=== PATIENT | female | born 2005 | race Caucasian/White ===

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

== ENCOUNTER 2023-03-10 04:29 | Outpatient (CLI) | payer MEDICAID, SELFPAY ==
[2023-03-10 07:25] LABS: Abs Immature Grans 0.02 10^3/uL (0.0-0.06); Absolute Basophil Count 0.03 10^3/uL (0.0-0.2); Absolute Lymphocyte Count 2.44 10^3/uL (1.2-3.4); Absolute Monocyte Count 0.69 10^3/uL (0.1-0.8); Absolute Neutrophil Count 3.85 10^3/uL (1.2-6.7); Basophils % 0.4; Eosinophils % 4.1; HCT 40.1 % (36.0-46.0); Immature Grans % 0.3; Lymphocytes % 33.3; MCH 25.2 pg (27.0-33.0); MCHC 32.4 % (32.0-36.0); MCV 78 fL (80-95); MPV 8.9 fL (8.0-11.0); Monocytes % 9.4; Neutrophils % 52.5; Platelet Count 329 10^3/uL (130-400); RBC 5.16 10^6/uL (3.93-5.22); RDW 15.2 % (11.7-14.6); RDW-SD 42.1 fL; WBC 7.33 10^3/uL (4.4-10.8)
[2023-03-10 07:56] LABS: ALT 25 U/L (14-59); AST 16 U/L (15-37); Albumin 3.4 g/dL (3.4-5.0); Alkaline Phosphatase 140 U/L (46-116); Anion Gap 10.4 mmol/L (3-11); BUN 9 mg/dL (7-18); Bilirubin, Total 0.4 mg/dL (0.2-1.0); CO2 24.6 mmol/L (21.0-32.0); CREATININE 0.8 mg/dL (0.55-1.02); Calcium 8.8 mg/dL (8.5-10.1); Calculated LDL 80 mg/dL (<100); Chloride 106 mmol/L (98-107); Cholesterol 148 mg/dL (<200); Estimated GFR 108.78 (mL/min/1.73m2); Glucose 102 mg/dL (74-106); HDL Cholesterol 57 mg/dL (40-60); Sodium 141 mmol/L (136-145); Total Protein 7.4 g/dL (6.4-8.2); Triglyceride 58 mg/dL (<150)
[2023-03-10 08:15] LABS: Hemoglobin A1C 5.7 % (<5.7)
== END 2023-03-10 04:30 | disposition home or self-care (01) ==
LOC: LBO 04:30
PROVIDERS: PCP Nurse Practitioner Pediatrics; Visit Provider Nurse Practitioner Pediatrics
DX: F41.8 Other specified anxiety disorders (principal); K21.9 Gastro-esophageal reflux disease without esophagitis; E66.8 Other obesity; Z79.899 Other long term (current) drug therapy; F32.4 Major depressive disorder, single episode, in partial remission
CPT/HCPCS: 36415; 80053; 80061; 83036; 85025

== ENCOUNTER → 2023-09-25 00:21 | Outpatient (CLI) | payer MEDICAID, SELFPAY ==
--- NOTE | 2023-09-25 08:45 | DI.RAD_ITS ---
Exam(s) XR HIP LT COMPLETE AP PELVIS EXAM: XR HIP LT COMPLETE AP PELVIS CLINICAL HISTORY: chronic left hip pain,[id number]. TECHNIQUE: 2D digital imaging was performed. Three views. COMPARISON: No exams were available for comparison FINDINGS: BONES: No acute fracture is present. No bony destructive lesion is seen. JOINTS: No dislocation present. Joint spaces are maintained. SI joints and pubic symphysis are unr emarkable SOFT TISSUE: Normal. IMPRESSION: Unremarkable radiographs of the left hip. Unremarkable radiographs of the pelvis DATA REPOSITORY: RADIATION DOSE DELIVERED:
== END ==
PROVIDERS: PCP Nurse Practitioner Pediatrics; Visit Provider Nurse Practitioner Pediatrics
DX: M25.552 Pain in left hip (principal)
CPT/HCPCS: 73502

== ENCOUNTER 2023-09-25 00:59 | Outpatient (CLI) | payer MEDICAID, SELFPAY ==
[2023-09-25 15:01] LABS: ESR 9 mm/hr (0-20)
[2023-09-25 16:08] LABS: ALT 103 U/L (14-59); AST 42 U/L (15-37); Albumin 3.5 g/dL (3.4-5.0); Alkaline Phosphatase 116 U/L (46-116); Anion Gap 9.6 mmol/L (3-11); BUN 13 mg/dL (7-18); Bilirubin, Total 0.2 mg/dL (0.2-1.0); C-Reactive Protein 0.14 mg/dL (0.0-0.3); CO2 25.4 mmol/L (21.0-32.0); CREATININE 0.8 mg/dL (0.55-1.02); Calcium 9.1 mg/dL (8.5-10.1); Chloride 106 mmol/L (98-107); Estimated GFR 108.11 (mL/min/1.73m2); Glucose 105 mg/dL (74-106); Potassium 3.9 mmol/L (3.5-5.1); Sodium 141 mmol/L (136-145); Total Protein 7.3 g/dL (6.4-8.2)
[2023-09-25 21:45] LABS: Rheumatoid Factor <8.6 IU/mL (<12.0)
[2023-09-26 09:57] LABS: Lyme Ab w Rflx to Lyme Confirm Negative (Negative)
[2023-09-27 15:53] LABS: Anaplasma phagocytophilum Negative (Negative); B. miyamotoi PCR Negative (Negative); Babesia divergens/MO-1 Negative (Negative); Babesia duncani Negative (Negative); Babesia microti Negative (Negative); Ehrlichia chaffeensis Negative (Negative); Ehrlichia ewingii/canis Negative (Negative); Ehrlichia muris eauclairensis Negative (Negative)
== END 2023-09-25 01:00 | disposition home or self-care (01) ==
LOC: LBO 01:00
PROVIDERS: PCP Nurse Practitioner Pediatrics; Visit Provider Nurse Practitioner Pediatrics
DX: M25.552 Pain in left hip (principal)
CPT/HCPCS: 36415; 80053; 85652; 87798; 86140; 86431; 86618

== ENCOUNTER → 2023-10-30 03:09 | Outpatient (CLI) | payer MEDICAID, SELFPAY ==
--- NOTE | 2023-10-30 09:15 | DI.MRI_ITS ---
Exam(s) MR LOWER JOINT LT WO EXAM: MR LOWER JOINT LT WO CLINICAL HISTORY: L HIP PAIN,LABRAL TEAR LT HIP JOINT,S73.192A TECHNIQUE: Multiplanar multisequence MRI of the hip was performed. COMPARISON: CR XR HIP LT COMPLETE AP PELVIS from 09/25/2023 FINDINGS: MARROW:There is no evidence of fracture, bone contusion, nor avascular necrosis. There are no signif icant osseous lesions.There is no significant osseous excrescence at the femoral head-neck junction t o suggest the presence of cam-type KEDAR. EFFUSION: There is no evidence of asymmetric joint effusion.There are no loose intra-articular bodies . BURSAE: There is no evidence of trochanteric bursitis. There is no evidence of iliopsoas bursitis. HIP JOINT SPACE: No obvious chondral defects.There is no hypertrophy of the ligamentum teres nor sign al abnormality at the fovea centralis.There are no degenerative subarticular cysts. LABRUM: There is no evidence of obvious labral tear nor evidence of paralabral cyst. TENDONS: No evidence of tendinitis nor tendon tears. ISCHIAL TUBEROSITY/HAMSTRING: There is no abnormal intraosseous signal in the ipsilateral ischial tub erosity nor tear of the common hamstrings tendon attachment site at this level. OTHER: There is no abnormal intramuscular signal within the quadratus femoris to suggest the presence of impingement syndrome at this level. Small amount of fluid noted in the lower right adnexa which is probably female physiologic. IMPRESSION: 1. No evidence of obvious labral tear on this non arthrogram hip MRI study. Also no evidence of para labral cyst. 2. No evidence of stress fracture, avascular necrosis, nor evidence of hip dysplasia 3. No evidence of cam-type KEDAR nor degenerative osteoarthritic changes in the hip. DATA REPOSITORY:
== END ==
PROVIDERS: PCP Nurse Practitioner Pediatrics; Visit Provider Student in an Organized Health Care Education/Training Program
DX: S73.192A Other sprain of left hip, initial encounter (principal); X58.XXXA Exposure to other specified factors, initial encounter
CPT/HCPCS: 73721

== ENCOUNTER 2023-11-17 23:46 | Emergency (ER) | payer MEDICAID, SELFPAY ==
[2023-11-17 23:50] VITALS: BP 147/92; PULSE 121; RESP 18; TEMP 35.9; O2SAT 99
--- NOTE | 2023-11-18 00:05 | W.ED.GENAD ---
HPI General Date/Time Provider Initiated Documentation: 11/17/23 23:55. Limitations to Documentation: no limitations. Information obtained by: patient. History of Present Illness 18 year old F presents to the emergency department with the chief complaint of Nausea vomiting, described as moderate, Patient started experiencing this hour(s) (4) and it has been intermittent. No relieving factors improve symptom(s), No exacerbating factors reported . Patient notes other (Headache, abdominal cramping); denies chest pain, fever/chills and shortness of breath. Patient did receive the following treatments prior to arrival, NSAID Related Data Home Medications Medication Instructions Recorded Confirmed melatonin 3 mg tablet 3 mg PO DAILY #60 tabs 02/27/23 11/05/23 sertraline 100 mg tablet 200 mg (2 x 100 mg) PO DAILY #120 02/27/23 11/05/23 tabs aripiprazole 5 mg tablet (Abilify) 5 mg PO BID #60 tabs 07/31/23 11/05/23 hydroxyzine HCl 50 mg tablet 50 mg PO BID #60 tabs 08/04/23 11/05/23 norgestimate 0.25 mg-ethinyl 1 tab PO DAILY #84 tabs 09/17/23 11/05/23 estradiol 35 mcg tablet (Sprintec (28)) ondansetron 8 mg disintegrating 8 mg PO Q12H PRN nausea and 09/17/23 11/05/23 tablet vomiting #14 tabs magnesium gluconate 27.5 mg 27.5 mg PO BID #60 tabs 09/18/23 11/05/23 magnesium (500 mg) tablet pantoprazole 40 mg tablet,delayed 40 mg PO BID #60 tabs 09/24/23 11/05/23 release (Protonix) coenzyme Q10 10 mg capsule (Co 10 mg PO DAILY 11/05/23 11/05/23 Q-10) Previous Rx's Medication Instructions Recorded melatonin 3 mg tablet 3 mg PO DAILY #60 tabs 02/27/23 sertraline 100 mg tablet 200 mg (2 x 100 mg) PO DAILY #120 02/27/23 tabs aripiprazole 5 mg tablet (Abilify) 5 mg PO BID #60 tabs 07/31/23 hydroxyzine HCl 50 mg tablet 50 mg PO BID #60 tabs 08/04/23 norgestimate 0.25 mg-ethinyl 1 tab PO DAILY #84 tabs 09/17/23 estradiol 35 mcg tablet (Sprintec (28)) ondansetron 8 mg disintegrating 8 mg PO Q12H PRN nausea and 09/17/23 tablet vomiting #14 tabs magnesium gluconate 27.5 mg 27.5 mg PO BID #60 tabs 09/18/23 magnesium (500 mg) tablet pantoprazole 40 mg tablet,delayed 40 mg PO BID #60 tabs 09/24/23 release (Protonix) Allergies Allergy/AdvReac Type Severity Reaction Status Date / Time spearmint Allergy Severe Other (See Verified 11/05/23 10:06 Comment) animal dander Allergy Skin Rash Verified 11/05/23 10:06 oranges Allergy Uncoded 11/05/23 10:06 General Stated Complaint: Abd Prob HEMAL: 3 Review of Systems All systems reviewed & are unremarkable except as noted in HPI and below Constitutional Constitutional: Denies chills, Denies fever(s) and Denies weakness Cardiovascular Cardiovascular: Denies chest pain and Denies dyspnea Respiratory Respiratory: Denies cough and Denies dyspnea Gastrointestinal Gastrointestinal: Reports abdominal pain, Reports nausea and Reports vomiting Genitourinary Genitourinary: Denies dysuria Musculoskeletal Musculoskeletal: Denies joint swelling Integumentary/Breasts Skin/Breast: Denies rash Neurologic Neurologic: Denies weakness Exam Const General: no acute distress Orientation: alert [facility] Head: normal to inspection Ears: external ears normal General nose exam: external nose normal Mouth: moist mucous membranes Eyes General: appearance normal, both eyes and all related structures Neck Neck: normal visual inspection Resp Effort & Inspection: normal respiratory effort and able to speak in complete sentences Cardio Rate: regular rate GI Palpation: soft and nontender Skin General skin exam: no rashes or lesions noted Neuro General: patient alert and patient oriented x3 Extrem General: normal to inspection Psych Mental Status: mental status grossly normal Course Vital Signs Vital signs: Vital Signs Temperature 35.9 C L 11/17/23 23:50 Pulse 121 H 11/17/23 23:50 Respiratory Rate 18 11/17/23 23:50 Blood Pressure 147/92 H 11/17/23 23:50 Pulse Oximetry 99 11/17/23 23:50 Temperature 35.9 C L 11/17/23 23:50 Pulse 121 H 11/17/23 23:50 Respiratory Rate 18 11/17/23 23:50 Blood Pressure 147/92 H 11/17/23 23:50 Pulse Oximetry 99 11/17/23 23:50 Oxygen Delivery Method Room Air 11/17/23 23:50 Oxygen Flow Rate 0 11/17/23 23:50 Pain Level 7 11/17/23 23:50 Medical Decision Making 18-year-old female with a history of multiple psychiatric issues, who comes in with 4 hours of intermittent nausea vomiting and abdominal cramping along with a mild frontal headache. Denies any chest pain, difficulty breathing, fevers, neck stiffness, vaginal bleeding or discharge, no urinary symptoms. She is alert and oriented x 4 on arrival holding an emesis bag, not actively vomiting. She has a soft nontender abdomen on exam. Given her symptoms suspect some food illness or gastroenteritis. Given lack of abdominal tenderness doubt surgical pathology such as appendicitis, cholecystitis, we will proceed with CBC, CMP, lipase and treat her symptoms with IV fluids and droperidol and reassess Patient feels much better requesting discharge, labs show mild leukocytosis which she has frequently on prior labs, still has no abdominal tenderness on exam so do not feel any imaging indicated. Advised to follow-up with her primary care provider, return precautions given Differential Diagnosis Differential Diagnosis: Gastroenteritis, food illness, electrolyte abnormality Medical Records Medical records reviewed: Yes I reviewed the patient's medical records. Lab Data Lab results reviewed: Yes I reviewed the patient's lab results. Quality:SDOH Health Related Social Needs: No Data to Display PFSH All Active Problems (Updated 11/18/23 @ 01:41 by Berny Beckwith MD) Nausea & vomiting (Acute) Trochanteric bursitis, left hip (Acute) Femoroacetabular impingement of left hip (Acute) Mood disorder (Acute) Labral tear of left hip joint (Acute) Joint pain (Acute) Migraine headache (Chronic) GERD (gastroesophageal reflux disease) (Chronic) seen by [facility], recommended staying on Protonix 40mg and plan for EGD Anxiety (Chronic) Borderline personality disorder (Acute) Insomnia (Acute) Hbrudn-[id number] transgender person (Acute 02/17/17) Myopia (Chronic 07/28/14) Medical History Failed hearing screening Pain in both lower extremities ADHD, predominantly inattentive type [place] does not feel this was a true diagnosis, had adverse reaction to stimulant Eating disorder endorses restricted eating disorder - works with therapist weekly Family History Father Anxiety Brother ADHD (attention deficit hyperactivity disorder), combined type Sister ADHD (attention deficit hyperactivity disorder), combined type Mother Mental health problem Social History Smoking/Tobacco Use Status: Never Smoking risk assessment performed?: Yes Alcohol Intake: never Drug use: Never Substance use type: does not use Do you feel safe at home: Yes Do you feel safe in your relationship?: Yes Female Reproductive History Menstrual Duration of menses: other (on Lupron for hormonal suppression and transition to male) Discharge Plan Disposition Patient Disposition: Home Condition: Stable Discharge Details Clinical Impression: Nausea & vomiting Primary Care Provider: Judson Alas ED Provider: Berny Beckwith Home Meds and New Rx's Prescriptions: Continued melatonin 3 mg tablet 3 mg PO DAILY Qty: 60 3RF Rx Instructions: 1 tab by mouth once daily before bedtime sertraline 100 mg tablet 200 mg PO DAILY Qty: 120 2RF Rx Instructions: 2 tablets once a day ondansetron 8 mg tablet,disintegrating 8 mg PO Q12H PRN (Reason: nausea and vomiting) Qty: 14 0RF norgestimate-ethinyl estradiol [Sprintec (28)] 0.25-35 mg-mcg tablet 1 tab PO DAILY Qty: 84 0RF Rx Instructions: Take 1 tab daily magnesium gluconate 27.5 mg magne- sium (500 mg) tablet 27.5 mg PO BID Qty: 60 2RF Rx Instructions: Take 1 tab twice daily coenzyme Q10 [Co Q-10] 10 mg capsule 10 mg PO DAILY aripiprazole [Abilify] 5 mg tablet 5 mg PO BID Qty: 60 2RF Rx Instructions: Take 1 tab in AM and 1 tab at night hydroxyzine HCl 50 mg tablet 50 mg PO BID Qty: 60 3RF Rx Instructions: Take 1 tab twice daily pantoprazole [Protonix] 40 mg tablet,delayed release (DR/EC) 40 mg PO BID Qty: 60 2RF Rx Instructions: Take 1 tab twice daily Discharge Instructions Instructions: Acute Nausea and Vomiting (ED) Additional Instructions: Follow-up with your primary care provider within 1 week if not feeling better If you feel more ill, have persistent vomiting despite using your ondansetron, or severe abdominal pain return to the emergency department
[2023-11-18] MEDS: Normal Saline 1,000 ML 1000 ML IV (00:56)
[2023-11-18] MEDS: Droperidol 5 MG/2 ML VIAL 2.5 MG IVP (00:56)
[2023-11-18 00:59] LABS: Abs Immature Grans 0.06 10^3/uL (0.0-0.06); Absolute Basophil Count 0.04 10^3/uL (0.0-0.2); Absolute Lymphocyte Count 0.61 10^3/uL (1.2-3.4); Absolute Monocyte Count 1.09 10^3/uL (0.1-0.8); Basophils % 0.3; Eosinophils % 1.3; HCT 44.5 % (36.0-46.0); HGB 14.8 g/dL (11.2-15.7); Immature Grans % 0.4; Lymphocytes % 4.1; MCH 27.1 pg (27.0-33.0); MCHC 33.3 % (32.0-36.0); MCV 81 fL (80-95); MPV 9.1 fL (8.0-11.0); Monocytes % 7.3; Neutrophils % 86.6; Platelet Count 309 10^3/uL (130-400); RBC 5.47 10^6/uL (3.93-5.22); RDW 14.3 % (11.7-14.6); RDW-SD 42.5 fL
[2023-11-18 01:00] LABS: Absolute Eosinophil Count 0.19 10^3/uL (0.0-0.7)
[2023-11-18 01:16] VITALS: BP 147/92; PULSE 120; RESP 18; TEMP 35.9; O2SAT 99
[2023-11-18 01:19] LABS: HCG Qual (Serum) Negative
[2023-11-18 01:25] LABS: ALT 27 U/L (14-59); AST 15 U/L (15-37); Albumin 3.7 g/dL (3.4-5.0); Alkaline Phosphatase 131 U/L (46-116); Anion Gap 10.5 mmol/L (3-11); BUN 13 mg/dL (7-18); Bilirubin, Total 0.4 mg/dL (0.2-1.0); CO2 27.5 mmol/L (21.0-32.0); Calcium 9.3 mg/dL (8.5-10.1); Chloride 103 mmol/L (98-107); Estimated GFR 82.71 (mL/min/1.73m2); Glucose 125 mg/dL (74-106); Lipase 70 U/L (16-77); Magnesium 1.8 mg/dL (1.8-2.4); Potassium 4.4 mmol/L (3.5-5.1); Sodium 141 mmol/L (136-145); Total Protein 7.8 g/dL (6.4-8.2)
[2023-11-18 02:19] VITALS: BP 125/77; PULSE 90; RESP 14; O2SAT 95
== END 2023-11-18 02:20 | disposition home or self-care (01) ==
PROVIDERS: Emergency Provider Emergency Medicine; PCP Nurse Practitioner Pediatrics
DX: R10.9 Unspecified abdominal pain (principal); R51.9 Headache, unspecified; R11.2 Nausea with vomiting, unspecified
CPT/HCPCS: 36415; 80053; 83690; 96361; 96374; 99284; 83735; 84703; 85025; J1790

== ENCOUNTER 2024-01-27 18:29 | Emergency (ER) | payer MEDICAID, SELFPAY ==
[2024-01-27 18:38] VITALS: BP 131/83; PULSE 89; RESP 16; TEMP 37.1; O2SAT 98
--- NOTE | 2024-01-27 18:50 | W.ED.GENAD ---
Discharge Plan Discharge Details Chief Complaint: Suicide-Atempt Clinical Impression: Suicide ideation Primary Care Provider: Judson Alas ED Provider: Albert Bragg Home Meds and New Rx's Prescriptions: No Action melatonin 3 mg tablet 3 mg PO DAILY Qty: 60 3RF Rx Instructions: 1 tab by mouth once daily before bedtime aripiprazole [Abilify] 5 mg tablet See Rx Instructions PO DAILY MDD 15mg Qty: 90 3RF Rx Instructions: Take 2 tabs (10mg) daily in AM and 1 tab (5mg) daily at night sertraline 100 mg tablet 200 mg PO DAILY Qty: 120 2RF Rx Instructions: 2 tablets once a day propranolol 40 mg tablet 40 mg PO BID Qty: 60 2RF Rx Instructions: Take 1 tab in AM and 1 tab in PM norgestimate-ethinyl estradiol [Sprintec (28)] 0.25-35 mg-mcg tablet 1 tab PO DAILY Qty: 84 4RF Rx Instructions: Take 1 tab daily pantoprazole [Protonix] 40 mg tablet,delayed release (DR/EC) 40 mg PO BID Qty: 60 2RF Rx Instructions: Take 1 tab twice daily HPI General Date/Time Provider Initiated Documentation: 01/27/24 18:50. HPI Narrative: 18 year-old female presents to ED today by POV/ambulating with a chief complaint of suicidal ideation with onset acute on chronically- states she was going to kill herself last night, but cutting arms, but decided to get help instead. Quality described as acute on chronic suicidality, depression, states she does not get along with her sister who is 23 and aggressive, lives with her and parents at home, no radiation to medical complaints, denies chest pain, shortness of breath, fever, nausea/vomiting, possibility of , URI symptoms. Severity is described as severe for suicidality. Palliating factors include has weekly therapy appointments. Provoking factors include nothing specific. Events leading up to the incident/Associated Symptoms: Patient states she has had 3 prior hospitalizations at [facility], wants in-patient care at somewhere other than [facility]. Patient not anticoagulated. Related Data Home Medications Medication Instructions Recorded Confirmed melatonin 3 mg tablet 3 mg PO DAILY #60 tabs 02/27/23 01/27/24 aripiprazole 5 mg tablet (Abilify) See Rx Instructions PO DAILY #90 12/03/23 01/27/24 tabs sertraline 100 mg tablet 200 mg (2 x 100 mg) PO DAILY #120 12/03/23 01/27/24 tabs norgestimate 0.25 mg-ethinyl 1 tab PO DAILY #84 tabs 12/08/23 01/27/24 estradiol 35 mcg tablet (Sprintec (28)) pantoprazole 40 mg tablet,delayed 40 mg PO BID #60 tabs 01/08/24 01/27/24 release (Protonix) propranolol 40 mg tablet 40 mg PO BID #60 tabs 01/20/24 01/27/24 Previous Rx's Medication Instructions Recorded melatonin 3 mg tablet 3 mg PO DAILY #60 tabs 02/27/23 aripiprazole 5 mg tablet (Abilify) See Rx Instructions PO DAILY #90 12/03/23 tabs sertraline 100 mg tablet 200 mg (2 x 100 mg) PO DAILY #120 12/03/23 tabs norgestimate 0.25 mg-ethinyl 1 tab PO DAILY #84 tabs 12/08/23 estradiol 35 mcg tablet (Sprintec (28)) pantoprazole 40 mg tablet,delayed 40 mg PO BID #60 tabs 01/08/24 release (Protonix) propranolol 40 mg tablet 40 mg PO BID #60 tabs 01/20/24 Allergies Allergy/AdvReac Type Severity Reaction Status Date / Time spearmint Allergy Severe Other (See Verified 01/27/24 19:24 Comment) animal dander Allergy Skin Rash Verified 01/27/24 19:24 oranges Allergy Other (See Uncoded 01/27/24 19:24 Comment) General Stated Complaint: Suicide-Atempt HEMAL: 3 Review of Systems All systems reviewed & are unremarkable except as noted in HPI and below Exam Narrative Exam Narrative: GENERAL APPEARANCE: Well-nourished, non-toxic, awake and alert, atraumatic, no acute distress. SKIN: Warm, pink, dry, intact, without rashes/lesions/ulcerations. HEAD: Normocephalic, atraumatic, normal hair distribution for gender/age. EYES: Pupils PERRLA, EOMs intact without nystagmus, normal conjunctiva, no exudates on lids/lashes. ENT: Nares patent, no circumoral cyanosis, no facial swelling NECK: Supple, trachea midline, painless cervical ROM. LUNGS/CHEST: Non-labored respirations, normal A/P diameter, symmetrical expansion, no chest wall deformity HEART (CV/PV): Regular rate, R radial pulse 2+, no peripheral edema, no JVD. ABDOMEN: Soft, non-distended, no guarding. MSK: Normal ROM, no swelling/deformity to bilateral UEs or LEs, moving all extremities without weakness, no cyanosis, spine midline without tenderness, normal curvature. NEURO: Mental Status AAOx4 - alert to person, place, time, events No facial droop, no forehead involvement. Motor: No focal weakness - strength 5/5 in bilateral UEs and LEs, proximal and distal, symmetric. Sensory: sensation intact to light touch globally. Gait normal: patient ambulated without ataxia into ED room. PSYCH: dysthymic, cooperative, pleasant, appropriate speech Course Vital Signs Vital signs: Vital Signs Temperature 37.1 C 01/27/24 18:38 Pulse 89 01/27/24 18:38 Respiratory Rate 16 01/27/24 18:38 Blood Pressure 131/83 01/27/24 18:38 Pulse Oximetry 98 01/27/24 18:38 Temperature 37.1 C 01/27/24 18:38 Temperature Source Tympanic 01/27/24 18:38 Pulse 89 01/27/24 18:38 Respiratory Rate 16 01/27/24 18:38 Respiratory Effort Normal, Non-Labored 01/27/24 18:44 Blood Pressure 131/83 01/27/24 18:38 Blood Pressure Position Supine 01/27/24 18:38 Pulse Oximetry 98 01/27/24 18:38 Oxygen Delivery Method Room Air 01/27/24 18:38 Oxygen Flow Rate 0 01/27/24 18:38 Pain Level 3 01/27/24 18:38 Medical Decision Making This dictation utilizes [id number] dictation software and may contain unedited grammatical errors. 18 y/o F presents to ED today with a chief complaint of suicidal ideation, acute on chronic suicidality- states she was going to cut her arms last night and commit suicide but decided to get help- wants in-patient care. Patient endorses past attempts of taking not enough ibuprofen to even go to the hospital. Has weekly therapy appointments. Is employed. Lives at home with Dad and Sister- states her sister is a trigger for her. Patients' medical history: nothing specific, reports BPD with psychotic tendencies. Pertinent exam findings / vital signs include benign cardiopulmonary status, benign abdomen, neuro intact, nontoxic. Differential / pathologies of concern include suicidal ideation, depression, borderline personality disorder with psychotic tendencies. Diagnostic studies of: -None, held studies in case she needs to be admitted to a facility and they require them. Interventions of: -home meds reconciled. ED Course/Assessment/Plan: 18-year-old female presents with suicidal ideation, has had suicidal ideation chronically, it is acutely worse over the past week to month. She states her sister is a stressor to her, states she wanted to kill herself last night by cutting her arms and has some ways and means to do so. She states that she decided to get help instead. She has weekly therapy appointments. She is medically cleared for [facility] human services mental health evaluation. No acute events while in ED. 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 They recommend voluntary in-patient status, with EE if she attempts to leave. Disposition of Suicidal Ideation. Patient verbalized understanding of the plan and return to ED criteria and engaged in shared decision making. Medical Records Medical records reviewed: Yes I reviewed the patient's medical records. Quality:[facility] Health Related Social Needs: Health related social needs risk of homeless, personal safety PFSH All Active Problems (Updated 01/27/24 @ 21:25 by SUSAN Weller) Suicide ideation (Acute) Post-traumatic stress disorder (Acute) Trochanteric bursitis, left hip (Acute) Femoroacetabular impingement of left hip (Acute) Mood disorder (Acute) Labral tear of left hip joint (Acute) Joint pain (Acute) Migraine headache (Chronic) GERD (gastroesophageal reflux disease) (Chronic) seen by [facility], recommended staying on Protonix 40mg and plan for EGD Anxiety (Chronic) Borderline personality disorder (Acute) Insomnia (Acute) [id number] transgender person (Acute 02/17/17) Myopia (Chronic 07/28/14) Medical History Failed hearing screening Pain in both lower extremities ADHD, predominantly inattentive type [place] does not feel this was a true diagnosis, had adverse reaction to stimulant Eating disorder endorses restricted eating disorder - works with therapist weekly Family History Father Anxiety Brother ADHD (attention deficit hyperactivity disorder), combined type Sister ADHD (attention deficit hyperactivity disorder), combined type Mother Mental health problem Social History Smoking/Tobacco Use Status: Never Smoking risk assessment performed?: Yes Alcohol Intake: never Drug use: Never Substance use type: does not use Do you feel safe at home: Yes Do you feel safe in your relationship?: Yes Female Reproductive History Menstrual Duration of menses: other (on Lupron for hormonal suppression and transition to male)
[2024-01-27] MEDS: Pantoprazole 40 MG TABCR PO (21:55)
[2024-01-27] MEDS: ARIPiprazole 5 MG TAB PO (22:28)
[2024-01-27] MEDS: Melatonin 3 MG TAB PO (22:28)
[2024-01-27] MEDS: Propranolol 40 MG TAB PO (22:30)
[2024-01-27] MEDS: Sertraline 100 MG TAB 200 MG PO (22:30)
--- NOTE | 2024-01-28 06:10 | PDOC.MHCN_ITS ---
Date of service: 01/27/24 Time of Service: 21:05 PHQ-9 Over the last 2 weeks, how often have you been bothered by any of the following problems? 1. Little interest or pleasure in doing things: nearly every day 2. Feeling down, depressed, or hopeless: nearly every day 3. Trouble falling or staying asleep, or sleeping too much: not at all 4. Feeling tired or having little energy: nearly every day 5. Poor appetite or overeating: not at all 6. Feeling bad about yourself - or that you are a failure or have let yourself and your family down: more than half the days 7. Trouble concentrating on things, such as reading the newspaper or watching television: nearly every day 8. Moving or speaking so slowly that other people could have noticed? - Or the opposite - being so fidgety or restless that you have been moving around a lot more than usual: not at all 9. Thoughts that you would be better off or of hurting yourself in some way: nearly every day Total score: 17 If you checked off any problems, how difficult have these problems made it for you to do your work, take care of things at home, or get along with other people?: somewhat difficult Source: Developed by Drs. Uriel Flores, Yusra Paredes, Maurice Guerra and colleagues, with an educational vikram from [employer]. Suicide Severity Rate CSSRS Have you wished you were or wished you could go to sleep and not wake up?: Yes Have you actually had any thoughts of killing yourself?: Yes CSSRS2 Have you been thinking about how you might do this?: Yes Have you had these thoughts and had some intention of acting on them?: Yes Have you started to work out or worked out the details of how to kill yourself? Do you intend to carry out this plan?: Yes CSSRS3 Have you ever done anything, started to do anything or prepared to do anything to end your life?: Yes CSSRS4 Was this within the past three months?: Yes Screening Score Total Score: 8 Screening: Positive Mental Health Emergency Note Release [facility] release signed:: Yes Reason for Visit In the last 2 weeks has the pt presented for ES prior to today?: No Safety Risk/Harm to Self or Others Current Ideation to Harm Self or Others: Yes to self. Intent: yes, has intent. Plan: yes,has a plan. History of suicide attempt: yes,history of suicide attempt reported. Details of previous suicide attempt: CLient last attempt 01/25 thought about cutting to bleed out Asssessment/Mental Status Appearance: Unremarkable Attitude: Cooperative and Friendly Behavior: Unremarkable Speech: Normal Affect: Normal Mood: Sad, Stressed, Depressed and Anxious Thought process: Unremarkable Hallucinations: yes, Visual and Auditory Delusions: No Attention: Unremarkable Perception: Not impaired Orientation: Fully orientated Memory: Intact Insight: Good Judgement: Good Neurovegetative Symptoms Sleep: No change Appetitie: No change Interests: Decrease Energy: Decrease Libido: Not applicable Substance Use: Have you used substances in the last 7 days?: No Impression Client presented into [facility] ED with suicidal ideations. CLient reported that she talked herself out of trying to bleed to 01/25 and thought going to seek inpatient was a good idea. Client scored a 17 out of 27 on the PHQ-9 and answered yes to all the CSSRS questions. CLient reported no substance use. CLient reported no support system other than her therapist.? Plan/Disposition Recommended Disposition: Hospitalization No. Plan: Client is looking for voluntary inpatient placement at this time for suicidal ideation and additional support with possible DID. Client will remain at [facility] until placement is found, client will need daily assessments till placed.? Reports/communication Outcome discussed with: ED/Personnel
[2024-01-28] MEDS: ARIPiprazole 5 MG TAB 10 MG PO (09:13)
[2024-01-28] MEDS: Pantoprazole 40 MG TABCR PO ×2 (09:13→20:57)
[2024-01-28] MEDS: Propranolol 40 MG TAB PO ×2 (09:14→20:58)
[2024-01-28] MEDS: Sertraline 100 MG TAB 200 MG PO (09:14)
--- NOTE | 2024-01-28 10:12 | PDOC.CMSAFE ---
Care Management Safety Plan Status Status: Voluntary Reason for Wait Reason for Wait: Inpatient Admission Safety Plan Safety Plan: VOLUNTARY FOR INPATIENT PSYCHIATRIC STABILIZATION.? Patient is appropriate in all interactions since arriving at [facility]; Pt has demonstrated appropriate coping and communication skills, has articulated their needs and concerns and is fully engaged during staff interactions. Per Astrid at [facility], Justino Caseeat is reviewing referral. Safety plan has been established with patient, and care team, to adhere to patient goals, identify restrictions based on behavioral status, address nutrition, and determine allowed personal belongings, tools for hygiene and personal care. Determine level of activity including ambulation, level of supervision, visitors, and determine privileges based on behaviors and level of engagement by pt. SAFETY PLAN: 1. Will remain on suicide precautions, in paper clothes 2. Will remain in room under direct supervision of one-on-one staff at all times provided by [employer]; MILAN, STRUCTURAL ANALYST wet plant operator. 3. May have paper cups, plates, finger foods as well as a cardboard spoon with which to eat meals. 4. Follow [facility] Management of the Admitted Behavioral Health Patient policy. 5. Shower available in Zone B without limitation. 6. Personal belongings-soft items permitted at RN discretion. 7. Visitors-one at a time per RN discretion. 8. Activities: soft cart items approved per RN discretion. 9.? Bathroom privileges available in Zone B without limitation. 10. Phone: limited to cordless phone at RN discretion. Due to VOLUNTARY status, if patient wishes to leave [facility], staff will contact [facility] Crisis Screener ([phone]) and On-Call Oliving Machine Operator ([phone]) as soon as possible. In the event of elopement, notify [facility] Police ([phone]). Patient is currently voluntarily at [facility] and seeking inpatient admission when a bed becomes available. [facility] Frontline Call Taker will continue seeking placement. Please contact the Commercial Assistant Oliving Machine Operator ([phone]) and [facility] Call Taker ([phone]) for any needed changes in the Safety Plan. Safety plan has been provided to interdepartmental care team.
--- NOTE | 2024-01-28 13:52 | PDOC.MHCN_ITS ---
Date of service: 01/28/24 Time of Service: 11:30 PHQ-9 Over the last 2 weeks, how often have you been bothered by any of the following problems? 1. Little interest or pleasure in doing things: several days 2. Feeling down, depressed, or hopeless: more than half the days 3. Trouble falling or staying asleep, or sleeping too much: not at all 4. Feeling tired or having little energy: more than half the days 5. Poor appetite or overeating: not at all 6. Feeling bad about yourself - or that you are a failure or have let yourself and your family down: nearly every day 7. Trouble concentrating on things, such as reading the newspaper or watching television: more than half the days 8. Moving or speaking so slowly that other people could have noticed? - Or the opposite - being so fidgety or restless that you have been moving around a lot more than usual: not at all 9. Thoughts that you would be better off or of hurting yourself in some way: nearly every day Total score: 13 Source: Developed by Drs. Uriel Flores, Yusra Paredes, Maurice Guerra and colleagues, with an educational vikram from [employer]. Suicide Severity Rate CSSRS2 Have you been thinking about how you might do this?: Yes Have you had these thoughts and had some intention of acting on them?: Yes Have you started to work out or worked out the details of how to kill yourself? Do you intend to carry out this plan?: Yes CSSRS3 Have you ever done anything, started to do anything or prepared to do anything to end your life?: Yes Screening Score Total Score: 2 Screening: Positive Mental Health Emergency Note Release [facility] release signed:: Yes Reason for Visit Suicidal ideation with intent In the last 2 weeks has the pt presented for ES prior to today?: No Client Information Client is: Adult Outpatient Well Housed: Yes Non Suicidal Self Injury Current: Yes, none History: yes, none Safety Risk/Harm to Self or Others Current Ideation to Harm Self or Others: Yes to self. Intent: yes, has intent. Plan: yes,has a plan. Risk: Does risk to harm exist?: No Risk: Moderate Risk Duty to warn indicated: No Asssessment/Mental Status Appearance: Other Attitude: Cooperative Behavior: Unremarkable Speech: Normal Affect: Cogruent with mood Mood: Sad, Stressed, Depressed and Anxious Thought process: Goal directed Hallucinations: No Delusions: No Attention: Unremarkable Perception: Not impaired Orientation: Fully orientated Memory: Intact Insight: Fair Judgement: Fair Substance Use: Other Drug Issues: Other Do you use nicotine?: No Have you used substances in the last 7 days?: No Additional Issues: Assaultive/Threatening Behavior: No Medical Concerns: Yes Client engaged in active self harm w/weapon: No Threatening to run away: No Child reported abuse/neglect: No Voluntarily presenting for services: Yes Domestic violence is a concern: No Extreme Psychosis or extreme behavior is present: No Impression Client is willing to go inpatient voluntarily due to endorsing suicidal ideation with intent [facility] and [facility] Plan/Disposition Recommended Disposition: Hospitalization No. Plan: Client will wait in hospital until an inpatient bed is available. Person reported agreement to plan: Yes Reports/communication Outcome discussed with: ED/Personnel
[2024-01-28] MEDS: Melatonin 3 MG TAB PO (20:57)
[2024-01-28] MEDS: ARIPiprazole 5 MG TAB PO (20:57)
--- NOTE | 2024-01-29 07:51 | CMSP_ITS ---
Date of service: 01/29/24 Time of Service: 07:51 Care Management Safety Plan Status Status: Voluntary Reason for Wait Reason for Wait: Inpatient Admission Safety Plan Safety Plan: VOLUNTARY FOR INPATIENT PSYCHIATRIC STABILIZATION.? Patient is appropriate in all interactions since arriving at [facility]; Pt has demonstrated appropriate coping and communication skills, has articulated their needs and concerns and is fully engaged during staff interactions. Per Astrid at [facility], Justino Caseeat is reviewing referral. Safety plan has been established with patient, and care team, to adhere to patient goals, identify restrictions based on behavioral status, address nutrition, and determine allowed personal belongings, tools for hygiene and personal care. Determine level of activity including ambulation, level of supervision, visitors, and determine privileges based on behaviors and level of engagement by pt. SAFETY PLAN: 1. Will remain on suicide precautions, in paper clothes 2. Will remain in room under direct supervision of one-on-one staff at all times provided by [employer]; MILAN, HEATING REPAIR TECHNICIAN economics instructor. 3. May have paper cups, plates, finger foods as well as a cardboard spoon with which to eat meals. 4. Follow [facility] Management of the Admitted Behavioral Health Patient policy. 5. Shower available in Zone B without limitation. 6. Personal belongings-soft items permitted at RN discretion. 7. Visitors-one at a time per RN discretion. 8. Activities: soft cart items approved per RN discretion. 9.? Bathroom privileges available in Zone B without limitation. 10. Phone: limited to cordless phone at RN discretion. Due to VOLUNTARY status, if patient wishes to leave [facility], staff will contact [facility] Crisis Screener ([phone]) and On-Call Assistant Inventory Manager ([phone]) as soon as possible. In the event of elopement, notify [facility] Police ([phone]). Patient is currently voluntarily at [facility] and seeking inpatient admission when a bed becomes available. [facility] Frontline Pattern Generator Operator will continue seeking placement. Please contact the Box Repairer Assistant Inventory Manager ([phone]) and [facility] Pattern Generator Operator ([phone]) for any needed changes in the Safety Plan. Safety plan has been provided to interdepartmental care team.
[2024-01-29 09:25] VITALS: BP 119/77; PULSE 89; RESP 18; TEMP 36.6; O2SAT 96
[2024-01-29] MEDS: ARIPiprazole 5 MG TAB 10 MG PO (09:33)
[2024-01-29] MEDS: Sertraline 100 MG TAB 200 MG PO (09:34)
[2024-01-29] MEDS: Pantoprazole 40 MG TABCR PO (09:34)
[2024-01-29] MEDS: Propranolol 40 MG TAB PO (09:34)
--- NOTE | 2024-01-29 11:35 | ED.PROG_ITS ---
Date of service: 01/29/24 Time of Service: 11:36 Medical Decision Making Resting comfortably no acute distress. Patient has been accepted at [facility] provider to provider signout has been given to Jaja Gabriel Quality:[facility] Health Related Social Needs: Health related social needs risk of homeless, personal safety Sign Out Sign Out Data: Sign Out Comment: Suicidal Ideation - significant psych history with dissociative disorder. [facility]' voluntary bed search in progress. EE if she attempts to leave. Provider agrees. Home Meds Ordered. Last updated by Albert Bragg PA at 01/27/24 21:28 Sign Out Comment: 18-year-old presenting with suicidal ideation and depression. Cleared and evaluated by mental health recommend inpatient admission. Patient is voluntary at this time. No issues overnight. Last updated by Uriel Beck MD at 01/28/24 07:03 Sign Out Comment: Patient stable throughout shift. Seen by mental health and recommends continued to do voluntary admission. Pending placement Last updated by Albert Chiu DO at 01/28/24 14:05 Sign Out Comment: pending voluntary placement for SI No issues during shift Last updated by Pauline Carrasquillo MD at 01/28/24 21:16 Sign Out Comment: No issues overnight. Patient remains cooperative and pending placement for voluntary psychiatric admission. Last updated by Uriel Beck MD at 01/29/24 06:51 Discharge Plan Disposition Patient Disposition: Psychiatric Hospital/Unit Specific Psychiatric Facility: [facility] Condition: Stable Discharge Details Chief Complaint: Suicide-Atempt Clinical Impression: Suicide ideation Primary Care Provider: Judson Alas ED Provider: Prabhjot Retana Home Meds and New Rx's Prescriptions: No Action aripiprazole [Abilify] 5 mg tablet See Rx Instructions PO DAILY MDD 15mg Qty: 90 3RF Rx Instructions: Take 2 tabs (10mg) daily in AM and 1 tab (5mg) daily at night sertraline 100 mg tablet 200 mg PO DAILY Qty: 120 2RF Rx Instructions: 2 tablets once a day propranolol 40 mg tablet 40 mg PO BID Qty: 60 2RF Rx Instructions: Take 1 tab in AM and 1 tab in PM norgestimate-ethinyl estradiol [Sprintec (28)] 0.25-35 mg-mcg tablet 1 tab PO DAILY Qty: 84 4RF Rx Instructions: Take 1 tab daily pantoprazole [Protonix] 40 mg tablet,delayed release (DR/EC) 40 mg PO BID Qty: 60 2RF Rx Instructions: Take 1 tab twice daily propranolol 20 mg tablet Patient Comments: TAKE ONE TABLET BY MOUTH TWICE A DAY melatonin 3 mg tablet 3 mg PO HS Rx Instructions: 1 tab by mouth once daily before bedtime
[2024-01-29 13:11] LABS: *AMPHETAMINES SCREEN URINE Negative (Negative); *BARBITURATES SCREEN URINE Negative (Negative); *BENZODIAZEPINES SCREEN URINE Negative (Negative); Cannabinoids THC Negative (Negative); Cocaine Screen,Urine Negative (Negative); METHADONE URINE SCREEN Negative (Negative); OPIATES URINE SCREEN Negative (Negative)
[2024-01-29 13:23] LABS: Tricyclic Antidepressants Negative (Negative)
--- NOTE | 2024-01-29 15:16 | PDOC.MHPN2 ---
Mental Health Emergency Note Release [facility] release signed:: Yes Reason for Visit Client presented into [facility] ED n 4.30.24 stating they wanted to by suicide by cutting their forearms and decided not to, client is looking for voluntary inpatient placement. Client is known to the agency but was discharged 11/03/2023 to pursue specialized services for NDD and DID. Client was reassessed today face to face at bedside. In the last 2 weeks has the pt presented for ES prior to today?: Unknown Impression The client is a 18-year-old, single, born female who uses They/Them pronouns. All underrepresented categories were honored during this assessment. The client is still endorsing SI with intent and seeking voluntary placement. They had a paperclip in their hand that had been spread open along with a sharp piece of their fidget spinner that they cortes handed over to the nurse this am after brushing their teeth. They did not need to be asked for these items and nursing did not know they did have them. During this assessment he client is sitting on their bed with the TV playing some music and coloring. The client made brief eye contact and appeared to be honest with their answers. They reported good appetite and sleep. Plan/Disposition Recommended Disposition: Hospitalization facilities contacted. Plan: The client was accepted by [facility] and will be transported once transportation is found. Person reported agreement to plan: Yes Facilities contacted if Applicable [facility] Accepted, Accepted/transfer pending. Reports/communication Outcome discussed with: ED/Personnel
== END 2024-01-29 15:04 ==
PROVIDERS: Emergency Provider Emergency Medicine; PCP Nurse Practitioner Pediatrics
DX: R45.851 Suicidal ideations (principal); F32.A Depression, unspecified; F44.81 Dissociative identity disorder
CPT/HCPCS: 00123; 80307; 81025; 96127; 99285

== ENCOUNTER 2024-07-07 15:21 | Emergency (ER) | payer MEDICAID, SELFPAY ==
[2024-07-07 15:21] VITALS: BP 118/86; PULSE 85; RESP 14; TEMP 36.4; O2SAT 98
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
--- NOTE | 2024-07-07 15:39 | ED.GENADUL_ITS ---
Discharge Plan Discharge Details Chief Complaint: PsychEval Primary Care Provider: Judson Alas ED Provider: Berny Beckwith Home Meds and New Rx's Prescriptions: No Action sertraline 100 mg tablet 200 mg PO DAILY Qty: 120 2RF Rx Instructions: 2 tablets once a day propranolol 60 mg tablet 60 mg PO BID Qty: 60 3RF Rx Instructions: Take 1 tab twice a day norgestimate-ethinyl estradiol [Sprintec (28)] 0.25-35 mg-mcg tablet 1 tab PO DAILY Qty: 84 4RF Rx Instructions: Take 1 tab daily aripiprazole [Abilify] 5 mg tablet See Rx Instructions PO DAILY MDD 15mg Qty: 90 3RF Rx Instructions: Take 2 tabs (10mg) daily in AM and 1 tab (5mg) daily at night pantoprazole [Protonix] 40 mg tablet,delayed release (DR/EC) 40 mg PO BID Qty: 60 2RF Rx Instructions: Take 1 tab twice daily prazosin 5 mg capsule 5 mg PO QHS Qty: 60 2RF HPI General Mode of arrival: EMS . Date/Time Provider Initiated Documentation: 07/07/24 15:31 . Limitations to Documentation: no limitations . Information obtained by: patient . History of Present Illness 19 year old F presents to the emergency department with the chief complaint of thoughts of self harm, described as moderate, Patient started experiencing this week(s) (2) and it has been constant. No relieving factors improve symptom(s), No exacerbating factors reported . Related Data Home Medications ?Medication ?Instructions ?Recorded ?Confirmed propranolol 60 mg tablet 60 mg PO BID #60 tabs 02/19/24 07/07/24 sertraline 100 mg tablet 200 mg (2 x 100 mg) PO DAILY #120 03/03/24 07/07/24 tabs aripiprazole 5 mg tablet (Abilify) See Rx Instructions PO DAILY #90 03/17/24 07/07/24 tabs norgestimate 0.25 mg-ethinyl 1 tab PO DAILY #84 tabs 03/17/24 07/07/24 estradiol 35 mcg tablet (Sprintec (28)) pantoprazole 40 mg tablet,delayed 40 mg PO BID #60 tabs 03/17/24 07/07/24 release (Protonix) prazosin 5 mg capsule 5 mg PO QHS #60 caps 06/30/24 07/07/24 Previous Rx's ?Medication ?Instructions ?Recorded propranolol 60 mg tablet 60 mg PO BID #60 tabs 02/19/24 sertraline 100 mg tablet 200 mg (2 x 100 mg) PO DAILY #120 03/03/24 tabs aripiprazole 5 mg tablet (Abilify) See Rx Instructions PO DAILY #90 03/17/24 tabs norgestimate 0.25 mg-ethinyl 1 tab PO DAILY #84 tabs 03/17/24 estradiol 35 mcg tablet (Sprintec (28)) pantoprazole 40 mg tablet,delayed 40 mg PO BID #60 tabs 03/17/24 release (Protonix) prazosin 5 mg capsule 5 mg PO QHS #60 caps 06/30/24 Allergies Allergy/AdvReac Type Severity Reaction Status Date / Time spearmint Allergy Severe Other (See Verified 07/07/24 15:25 Comment) animal dander Allergy Skin Rash Verified 07/07/24 15:25 oranges Allergy Other (See Uncoded 07/07/24 15:25 Comment) General Stated Complaint: PsychEval HEMAL: 2 Review of Systems All systems reviewed & are unremarkable except as noted in HPI and below Constitutional Constitutional: Denies chills, Denies fever(s) and Denies weakness Cardiovascular Cardiovascular: Denies chest pain and Denies dyspnea Respiratory Respiratory: Denies cough and Denies dyspnea Gastrointestinal Gastrointestinal: Denies abdominal pain, Denies nausea and Denies vomiting Neurologic Neurologic: Denies weakness Psychiatric Psychiatric: Reports depression Exam Const General: no acute distress Orientation: alert [facility] Head: normal to inspection Ears: external ears normal General nose exam: external nose normal Mouth: moist mucous membranes Eyes General: appearance normal, both eyes and all related structures Neck Neck: normal visual inspection Resp Effort & Inspection: normal respiratory effort and able to speak in complete sentences Cardio Rate: regular rate Skin General skin exam: no rashes or lesions noted Neuro General: patient alert and patient oriented x3 Extrem General: normal to inspection Psych Appearance: well kempt Attitude: cooperative Course Vital Signs Vital signs: Vital Signs Temperature 36.4 C L 07/07/24 15:21 Pulse 85 07/07/24 15:21 Respiratory Rate 14 07/07/24 15:21 Blood Pressure 118/86 07/07/24 15:21 Pulse Oximetry 98 07/07/24 15:21 Temperature 36.4 C L 07/07/24 15:21 Pulse 85 07/07/24 15:21 Respiratory Rate 14 07/07/24 15:21 Respiratory Effort Normal 07/07/24 15:30 Blood Pressure 118/86 07/07/24 15:21 Blood Pressure Position Sitting 07/07/24 15:21 Pulse Oximetry 98 07/07/24 15:21 Oxygen Delivery Method Room Air 07/07/24 15:21 Oxygen Flow Rate 0 07/07/24 15:21 Pain Level 4 07/07/24 15:21 Comment chronic hip pain 07/07/24 15:21 Medical Decision Making 19-year-old female with a history of mood disorder and depression comes in with 2 weeks of worsening depression and thoughts of self-harm. She says she has not acted on thoughts of self-harm but states she has been having thoughts of wanting to cut herself. She denies any alcohol or drug use. She is alert and x 4 on arrival and appears well. No signs of trauma to the head or arms or legs. No focal deficits on exam. Given her history she is medically cleared to see mental health. Do not feel underlying medical process such as infectious or endocrine issue given her lack of other systemic symptoms. I conferred with mental health the patient was screened prior to coming here and they are sending referrals for voluntary placement. Differential Diagnosis Differential Diagnosis: Depression, SI, mood disorder Lab Data Lab results reviewed: Yes I reviewed the patient's lab results. Quality:SDOH Health Related Social Needs: Health related social needs housing instability, house d, with risk of homelessness(Z59.811), problem related to primary support group(Z63.9) [facility] All Active Problems Post-traumatic stress disorder (Acute) Trochanteric bursitis, left hip (Acute) Femoroacetabular impingement of left hip (Acute) Mood disorder (Acute) Labral tear of left hip joint (Acute) Joint pain (Acute) Migraine headache (Chronic) GERD (gastroesophageal reflux disease) (Chronic) seen by [facility], recommended staying on Protonix 40mg and plan for EGD Anxiety (Chronic) Borderline personality disorder (Acute) Insomnia (Acute) 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/17) Myopia (Chronic 07/28/14) Medical History Failed hearing screening Pain in both lower extremities ADHD, predominantly inattentive type [place] does not feel this was a true diagnosis, had adverse reaction to stimulant Eating disorder endorses restricted eating disorder - works with therapist weekly Family History Father Anxiety Brother ADHD (attention deficit hyperactivity disorder), combined type Sister ADHD (attention deficit hyperactivity disorder), combined type Mother Mental health problem Social History Smoking/Tobacco Use Status: Never Smoking risk assessment performed?: Yes Alcohol Intake: never Drug use: Never Substance use type: does not use Housing: house Do you feel safe at home: No Do you feel safe in your relationship?: Yes Additional Social history: lives with father and other family Female Reproductive History Menstrual Duration of menses: other
[2024-07-07 15:55] LABS: Bilirubin Negative (Negative); Blood Negative (Negative); Clarity Clear (Clear); Glucose Negative (Negative); Ketones Negative (Negative); Leukocyte Esterase Small (Negative); Nitrite Negative (Negative); Specific Gravity >= 1.030 (1.005-1.025); Urobilinogen 0.2 mg/dL (Up to 0.2); pH 5.5 (5-8)
[2024-07-07 16:25] LABS: *AMPHETAMINES SCREEN URINE Negative (Negative); *BARBITURATES SCREEN URINE Negative (Negative); *BENZODIAZEPINES SCREEN URINE Negative (Negative); Cannabinoids THC Negative (Negative); Cocaine Screen,Urine Negative (Negative); METHADONE URINE SCREEN Negative (Negative); OPIATES URINE SCREEN Negative (Negative)
[2024-07-07 16:29] LABS: RBC 0-2 HPF (0-2)
[2024-07-07 16:30] LABS: Bacteria Few HPF (Negative); Crystals Negative HPF (Negative); Epithelial Cells Moderate HPF (Negative)
[2024-07-07 16:31] LABS: C & S Indicated? No/Sq. Contamination; Mucus Trace (Negative); Tricyclic Antidepressants Negative (Negative)
--- NOTE | 2024-07-07 17:48 | CMSP_ITS ---
Date of service: 07/07/24 Time of Service: 17:48 Care Management Safety Plan Status Status: Voluntary Reason for Wait Reason for Wait: Inpatient Admission Safety Plan Safety Plan: VOLUNTARY FOR INPATIENT PSYCHIATRIC STABILIZATION.? Patient is appropriate in all interactions since arriving at [facility]; Pt has demonstrated appropriate coping and communication skills, has articulated his or her needs and concerns and is fully engaged during staff interactions. Per report, the pt would prefer not to go to [facility]; they recently went there for treatment. Their father is supportive; may call or visit at RN discretion. Referrals are being sent to all hospitals by [facility]. Safety plan has been established with patient, and care team, to adhere to patient goals, identify restrictions based on behavioral status, address nutrition, and determine allowed personal belongings, tools for hygiene and personal care. Determine level of activity including ambulation, level of supervision, visitors, and determine privileges based on behaviors and level of engagement by pt. VOLUNTARY SAFETY PLAN: 1. Will remain on suicide precautions, in paper clothes 2. Will remain in Zone B under direct supervision of one-on-one staff at all times provided by [employer]; MILAN, ASSEMBLY LEAD PERSON vibrator equipment tester. 3. May have paper cups, plates, finger foods as well as a cardboard spoon with which to eat meals. 4. Follow [facility] Management of the Admitted Behavioral Health Patient policy. 5. Shower available in Zone B without restriction. 6. Personal belongings-soft items permitted at RN discretion. 7. Visitors- at RN discretion. 8. Activities: soft cart items approved per RN discretion. 9.? Bathroom available in Zone B without restriction. 10. Phone: limited to [facility] cordless phone at RN discretion. Due to VOLUNTARY status, if patient wishes to leave [facility], staff will contact [facility] Crisis Screener ([phone]) and Machinist Apprentice Wood ([phone]) as soon as possible. In the event of elopement, notify [place] [employer] ([phone]). Patient is currently voluntarily at [facility] and seeking inpatient admission when a bed becomes available. [facility] Frontline Quantitative Developer will continue seeking placement. Please contact the Machinist Apprentice Wood ([phone]) and [facility] Quantitative Developer ([phone]) for any needed changes in the Safety Plan. Safety plan has been provided to interdepartmental care team.
[2024-07-07] MEDS: Prazosin 5 MG CAP PO (19:39)
[2024-07-07] MEDS: ARIPiprazole 5 MG TAB PO (19:39)
[2024-07-07] MEDS: Propranolol 20 MG TAB 60 MG PO (19:39)
[2024-07-07] MEDS: Ibuprofen 400 MG TAB PO (19:39)
[2024-07-07] MEDS: Pantoprazole 40 MG TABCR PO (19:39)
[2024-07-08 09:00] VITALS: BP 118/75; PULSE 84; RESP 16; TEMP 36.6; O2SAT 97
--- NOTE | 2024-07-08 09:00 | ED.PROG_ITS ---
Date of service: 07/08/24 Time of Service: 08:00 Medical Decision Making In brief, this is a 19-year-old adult patient who is boarding in our emergency department as a voluntary patient with suicidal ideation without attempt. They have been medically cleared, had not required any chemical or physical restraint , and home meds were ordered. They are awaiting final placement for inpatient psychiatric care. The patient remained hemodynamically appropriate, calm, and comfortable, and was signed out to the oncoming provider prior to final placement. Aliya Saenz MD Medical Records Medical records reviewed: Yes I reviewed the patient's medical records. Lab Data Lab results reviewed: Yes I reviewed the patient's lab results. Quality:SDOH Health Related Social Needs: Health related social needs housing instability, house d, with risk of homelessness(Z59.811), problem related to primary support group(Z63.9) Sign Out Sign Out Data: Sign Out Comment: Patient seeking voluntary placement for SI,, cooperative without issues during shift. Last updated by Berny Beckwith MD at 07/07/24 21:28 Sign Out Comment: Patient seeking voluntary placement for suicidal ideations. No interventions needed during shift. Last updated by Albert Chiu DO at 07/08/24 04:39 Discharge Plan Discharge Details Chief Complaint: PsychEval Primary Care Provider: Judson Alas ED Provider: Aliya Saenz Home Meds and New Rx's Prescriptions: No Action sertraline 100 mg tablet 200 mg PO DAILY Qty: 120 2RF Rx Instructions: 2 tablets once a day propranolol 60 mg tablet 60 mg PO BID Qty: 60 3RF Rx Instructions: Take 1 tab twice a day norgestimate-ethinyl estradiol [Sprintec (28)] 0.25-35 mg-mcg tablet 1 tab PO DAILY Qty: 84 4RF Rx Instructions: Take 1 tab daily aripiprazole [Abilify] 5 mg tablet See Rx Instructions PO DAILY MDD 15mg Qty: 90 3RF Rx Instructions: Take 2 tabs (10mg) daily in AM and 1 tab (5mg) daily at night pantoprazole [Protonix] 40 mg tablet,delayed release (DR/EC) 40 mg PO BID Qty: 60 2RF Rx Instructions: Take 1 tab twice daily prazosin 5 mg capsule 5 mg PO QHS Qty: 60 2RF
[2024-07-08] MEDS: Pantoprazole 40 MG TABCR PO ×2 (09:11→20:41)
[2024-07-08] MEDS: ARIPiprazole 5 MG TAB 10 MG PO (09:11)
[2024-07-08] MEDS: Sertraline 100 MG TAB 200 MG PO (09:11)
[2024-07-08] MEDS: Propranolol 20 MG TAB 60 MG PO ×2 (09:12→20:42)
--- NOTE | 2024-07-08 13:01 | CMSP_ITS ---
Date of service: 07/08/24 Time of Service: 13:01 Care Management Safety Plan Status Status: Voluntary Reason for Wait Reason for Wait: Inpatient Admission Safety Plan Safety Plan: VOLUNTARY FOR INPATIENT PSYCHIATRIC STABILIZATION.? Patient is appropriate in all interactions since arriving at [facility]; Pt has demonstrated appropriate coping and communication skills, has articulated his or her needs and concerns and is fully engaged during staff interactions. Per report, the pt would prefer not to go to [facility]; they recently went there for treatment. Their father is supportive; may call or visit at RN discretion. Referrals are being sent to all hospitals by [facility]. Safety plan has been established with patient, and care team, to adhere to patient goals, identify restrictions based on behavioral status, address nutrition, and determine allowed personal belongings, tools for hygiene and personal care. Determine level of activity including ambulation, level of supervision, visitors, and determine privileges based on behaviors and level of engagement by pt. VOLUNTARY SAFETY PLAN: 1. Will remain on suicide precautions, in paper clothes 2. Will remain in Zone B under direct supervision of one-on-one staff at all times provided by [employer]; MILAN, ROLLER SKATE REPAIRER worm sorter. 3. May have paper cups, plates, finger foods as well as a cardboard spoon with which to eat meals. 4. Follow [facility] Management of the Admitted Behavioral Health Patient policy. 5. Shower available in Zone B without restriction. 6. Personal belongings-soft items permitted at RN discretion. 7. Visitors- at RN discretion. 8. Activities: soft cart items approved per RN discretion. 9.? Bathroom available in Zone B without restriction. 10. Phone: limited to [facility] cordless phone at RN discretion. Due to VOLUNTARY status, if patient wishes to leave [facility], staff will contact [facility] Crisis Screener ([phone]) and Shuttle Operator ([phone]) as soon as possible. In the event of elopement, notify [place] [employer] Police ([phone]). Patient is currently voluntarily at [facility] and seeking inpatient admission when a bed becomes available. [facility] Frontline Log Deck Tender will continue seeking placement. Please contact the Shuttle Operator ([phone]) and [facility] Log Deck Tender ([phone]) for any needed changes in the Safety Plan. Safety plan has been provided to interdepartmental care team.
--- NOTE | 2024-07-08 13:01 | CMPROGNOTE_ITS ---
Date of service: 07/08/24 Time of Service: 13:01 Care Management Progress Note Progress Note Text Progress Note Text: CM met with staff including primary RN, MATERIALS MANAGEMENT MANAGER/[employer]PS[employer], and [facility] clinicians, to discuss the plan of care for Rinku. Per RN, Rinku has been appropriate in interactions. Their father has been calling and visiting, and appears supportive. Per [facility], Rinku stated that they refuse to go to . [facility] clinician provided education about the process, as while patients are in zone B, they are not receiving treatment, therefore it is important that they are transferred to the first bed available. [facility] clinician is reaching out to all facilities where refe rrals were sent, and will provide an update when available. Rinku remains voluntary, seeking inpatient psychiatric treatment. Referrals have been sent. Safety plan in place; no changes to safety plan today. CM will continue to follow. SDOH(Care Management) Screening Will the Patient Participate in the Screening?: Unable to obtain
--- NOTE | 2024-07-08 13:01 | PDOC.CMSAFE ---
Date of service: 07/08/24 Time of Service: 13:01 Care Management Safety Plan Status Status: Voluntary Reason for Wait Reason for Wait: Inpatient Admission Safety Plan Safety Plan: VOLUNTARY FOR INPATIENT PSYCHIATRIC STABILIZATION.? Patient is appropriate in all interactions since arriving at [facility]; Pt has demonstrated appropriate coping and communication skills, has articulated his or her needs and concerns and is fully engaged during staff interactions. Per report, the pt would prefer not to go to [facility]; they recently went there for treatment. Their father is supportive; may call or visit at RN discretion. Referrals are being sent to all hospitals by [facility]. Safety plan has been established with patient, and care team, to adhere to patient goals, identify restrictions based on behavioral status, address nutrition, and determine allowed personal belongings, tools for hygiene and personal care. Determine level of activity including ambulation, level of supervision, visitors, and determine privileges based on behaviors and level of engagement by pt. VOLUNTARY SAFETY PLAN: 1. Will remain on suicide precautions, in paper clothes 2. Will remain in Zone B under direct supervision of one-on-one staff at all times provided by [employer]; MILAN, CYBER INCIDENT HANDLER media coordinator. 3. May have paper cups, plates, finger foods as well as a cardboard spoon with which to eat meals. 4. Follow [facility] Management of the Admitted Behavioral Health Patient policy. 5. Shower available in Zone B without restriction. 6. Personal belongings-soft items permitted at RN discretion. 7. Visitors- at RN discretion. 8. Activities: soft cart items approved per RN discretion. 9.? Bathroom available in Zone B without restriction. 10. Phone: limited to [facility] cordless phone at RN discretion. Due to VOLUNTARY status, if patient wishes to leave [facility], staff will contact [facility] Crisis Screener ([phone]) and Supervisor Plastic Sheets ([phone]) as soon as possible. In the event of elopement, notify [place] [employer] ([phone]). Patient is currently voluntarily at [facility] and seeking inpatient admission when a bed becomes available. [facility] Frontline Form Press Operator will continue seeking placement. Please contact the Supervisor Plastic Sheets ([phone]) and [facility] Form Press Operator ([phone]) for any needed changes in the Safety Plan. Safety plan has been provided to interdepartmental care team.
--- NOTE | 2024-07-08 13:01 | PDOC.CMPRO ---
Date of service: 07/08/24 Time of Service: 13:01 Care Management Progress Note Progress Note Text Progress Note Text: CM met with staff including primary RN, DESILVERIZER/CPSO, and [facility] clinicians, to discuss the plan of care for Rinku. Per RN, Rinku has been appropriate in interactions. Their father has been calling and visiting, and appears supportive. Per [facility], Rinku stated that they refuse to go to . [facility] clinician provided education about the process, as while patients are in zone B, they are not receiving treatment, therefore it is important that they are transferred to the first bed available. [facility] clinician is reaching out to all facilities where referrals were sent, and will provide an update when available. Rinku remains voluntary, seeking inpatient psychiatric treatment. Referrals have been sent. Safety plan in place; no changes to safety plan today. CM will continue to follow. SDOH(Care Management) Screening Will the Patient Participate in the Screening?: Unable to obtain
--- NOTE | 2024-07-08 17:07 | ED.PROG_ITS ---
Date of service: 07/08/24 Time of Service: 17:07 Medical Decision Making Care assumed from off going provider. Patient is F>M presenting with suicidal ideation and plan for killing themself with meds and cutting. Patient is medically cleared and pending voluntary inpatient psychiatric placement Quality:SDOH Health Related Social Needs: Health related social needs housing instability, house d, with risk of homelessness(Z59.811), problem related to primary support group(Z63.9) Sign Out Sign Out Data: Sign Out Comment: Patient seeking voluntary placement for SI,, cooperative without issues during shift. Last updated by Berny Beckwith MD at 07/07/24 21:28 Sign Out Comment: Patient seeking voluntary placement for suicidal ideations. No interventions needed during shift. Last updated by Albert Chiu DO at 07/08/24 04:39 Sign Out Comment: 19-year-old adult patient (they/them) voluntarily awaiting placement for suicidal ideation. No issues during my shift, potentially [place]? Last updated by Aliya Saenz MD at 07/08/24 15:40 Sign Out Comment: Pending voluntary inpatient psych placement SI with plan no issues during shift Last updated by Pauline Carrasquillo MD at 07/08/24 20:45 Discharge Plan Discharge Details Chief Complaint: PsychEval Primary Care Provider: Judson Alas ED Provider: Pauline Carrasquillo Home Meds and New Rx's Prescriptions: No Action sertraline 100 mg tablet 200 mg PO DAILY Qty: 120 2RF Rx Instructions: 2 tablets once a day propranolol 60 mg tablet 60 mg PO BID Qty: 60 3RF Rx Instructions: Take 1 tab twice a day norgestimate-ethinyl estradiol [Sprintec (28)] 0.25-35 mg-mcg tablet 1 tab PO DAILY Qty: 84 4RF Rx Instructions: Take 1 tab daily aripiprazole [Abilify] 5 mg tablet See Rx Instructions PO DAILY MDD 15mg Qty: 90 3RF Rx Instructions: Take 2 tabs (10mg) daily in AM and 1 tab (5mg) daily at night pantoprazole [Protonix] 40 mg tablet,delayed release (DR/EC) 40 mg PO BID Qty: 60 2RF Rx Instructions: Take 1 tab twice daily prazosin 5 mg capsule 5 mg PO QHS Qty: 60 2RF
[2024-07-08 20:19] VITALS: BP 128/82; PULSE 78; RESP 18; TEMP 35.8; O2SAT 100
[2024-07-08] MEDS: ARIPiprazole 5 MG TAB PO (20:41)
[2024-07-08] MEDS: Prazosin 5 MG CAP PO (20:42)
--- NOTE | 2024-07-09 07:27 | W.EDPROG ---
Date of service: 07/09/24 Time of Service: 07:27 Medical Decision Making In brief, this is a 19-year-old adult patient presenting with suicidal ideation and a plan, voluntarily boarding in our emergency department awaiting final placement for inpatient psychiatric care. Over their hospitalization, this patient has been calm, cooperative, and has not required any acute interventions. They are medically cleared, and on my examination this morning are without acute complaint. On my shift the patient was excepted to [facility], and will be transferred there in the afternoon. They remained hemodynamically appropriate while under my care and left this facility without incident. Aliya Saenz MD Medical Records Medical records reviewed: Yes I reviewed the patient's medical records. Lab Data Lab results reviewed: Yes I reviewed the patient's lab results. Quality:SDKS Health Related Social Needs: Health related social needs housing instability, housed, with risk of homelessness(Z59.811), problem related to primary support group(Z63.9) Sign Out Sign Out Data: Sign Out Comment: Patient seeking voluntary placement for SI,, cooperative without issues during shift. Last updated by Berny Beckwith MD at 07/07/24 21:28 Sign Out Comment: Patient seeking voluntary placement for suicidal ideations. No interventions needed during shift. Last updated by Albert Chiu DO at 07/08/24 04:39 Sign Out Comment: 19-year-old adult patient (they/them) voluntarily awaiting placement for suicidal ideation. No issues during my shift, potentially [place]? Last updated by Aliya Saenz MD at 07/08/24 15:40 Sign Out Comment: Pending voluntary inpatient psych placement SI with plan no issues during shift Last updated by Pauline Carrasquillo MD at 07/08/24 20:45 Discharge Plan Disposition Patient Disposition: Psychiatric Hospital/Unit Specific Psychiatric Facility: [facility] Condition: Stable Discharge Details Chief Complaint: PsychEval Clinical Impression: Suicidal ideation, Post-traumatic stress disorder, Insomnia, Borderline personality disorder, Anxiety, [id number] transgender person Primary Care Provider: Judson Alas ED Provider: Aliya Saenz Home Meds and New Rx's Prescriptions: No Action sertraline 100 mg tablet 200 mg PO DAILY Qty: 120 2RF Rx Instructions: 2 tablets once a day propranolol 60 mg tablet 60 mg PO BID Qty: 60 3RF Rx Instructions: Take 1 tab twice a day norgestimate-ethinyl estradiol [Sprintec (28)] 0.25-35 mg-mcg tablet 1 tab PO DAILY Qty: 84 4RF Rx Instructions: Take 1 tab daily aripiprazole [Abilify] 5 mg tablet See Rx Instructions PO DAILY MDD 15mg Qty: 90 3RF Rx Instructions: Take 2 tabs (10mg) daily in AM and 1 tab (5mg) daily at night pantoprazole [Protonix] 40 mg tablet,delayed release (DR/EC) 40 mg PO BID Qty: 60 2RF Rx Instructions: Take 1 tab twice daily prazosin 5 mg capsule 5 mg PO QHS Qty: 60 2RF
[2024-07-09] MEDS: ARIPiprazole 5 MG TAB 10 MG PO (07:55)
[2024-07-09] MEDS: Propranolol 20 MG TAB 60 MG PO (07:55)
[2024-07-09] MEDS: Sertraline 100 MG TAB 200 MG PO (07:55)
[2024-07-09] MEDS: Pantoprazole 40 MG TABCR PO (07:55)
[2024-07-09 08:48] VITALS: BP 122/83; PULSE 88; RESP 16; TEMP 36.2; O2SAT 99
[2024-07-09] MEDS: Ibuprofen 600 MG TAB PO (13:00)
== END 2024-07-09 14:57 ==
PROVIDERS: Emergency Medicine; Emergency Provider Emergency Medicine; PCP Nurse Practitioner Pediatrics
DX: R45.851 Suicidal ideations (principal); F32.A Depression, unspecified
CPT/HCPCS: 00123; 80307; 81025; 96127; 99285; 81003; 81015

== ENCOUNTER 2024-09-01 16:41 | Outpatient (CLI) | payer MEDICAID, SELFPAY ==
[2024-09-01 17:22] LABS: Hemoglobin A1C 5.8 % (<5.7)
[2024-09-01 18:05] LABS: Calculated LDL 80 mg/dL (<100); Cholesterol 164 mg/dL (<200); HDL Cholesterol 62 mg/dL (40-60); TSH (W/Ref FT4) 2.02 uIU/mL (0.36-3.74); Triglyceride 113 mg/dL (<150); Vitamin B12 391 pg/mL (193-986); Vitamin D 25 Total 15.4 ng/mL (30-100)
== END 2024-09-01 16:42 | disposition home or self-care (01) ==
PROVIDERS: PCP Nurse Practitioner Pediatrics; Visit Provider Student in an Organized Health Care Education/Training Program
DX: F32.2 Major depressive disorder, single episode, severe without psychotic features (principal)
CPT/HCPCS: 36415; 80061; 82306; 82607; 83036; 84443